=== PATIENT | female | born 1960 | race African-American/Black ===

== ENCOUNTER 2017-07-09 16:46 | Inpatient (IN) | payer OTHER ==
[2017-07-09 17:11] VITALS: BMI 22.7
[2017-07-09] MEDS ORDERED: diazePAM CARPU-JECT 10 MG/2 ML DISP.SYRIN IVPUSH ONE (17:42)
[2017-07-09] MEDS ORDERED: FOLIC ACID INJECTION - 1 MG, THIAMINE HCL 100 MG, MULTIVIT INJECTION ADULT 10 ML in SOD... IVPB ONE (17:47)
[2017-07-09 17:59] LABS: BASOPHIL 0.5 % (0-2.0); EOSINOPHIL 0.1 % (0-4.5); MCH 32.1 pg (25.7-33.7); MCHC 33.3 g/dl (32.0-36.0); MEAN CELL VOLUME 96.6 fl (80-96); NEUTROPHILS 66.9 % (42.8-82.8); RDW 16.2 % (11.6-15.6); WHITE BLOOD COUNT 4.6 K/mm3 (4.0-10.0)
[2017-07-09 18:11] LABS: URINE MARIJUANA THC NEGATIVE ng/ml (CUTOFF=50)
[2017-07-09] MEDS ORDERED: LORazepam 2 MG/ML SDV VIAL ONE (18:12)
--- NOTE | 2017-07-09 18:13 | PDOC ---
History of Present Illness - General Chief Complaint: Chest Pain Stated Complaint: CHEST PAIN Time Seen by Provider: 07/09/17 17:16 - History of Present Illness Initial Comments: 07/09/17 20:02 57F with pmh og HTN and Chronic alcohol abuse treated at [facility] for detox was sent to the ED from there when she started shaking and showing signs of withdrawal. Pt has been daily drinker since October, drinking about 1 pint of vodka per day. Last drink was 2 days ago. Denies h/o withdrawal seizures. She initially went to [facility] today for detox after she began to have tremors but began to experience chest pain. [facility] staff then referred patient to the ED for evaluation. Patient denies SOB. States that she gets chest pain intermittently and has been seen by doctor in the past but does not recall being diagnosed with anything Complains of generalized muscle pain including chest and lower abdomen. 07/10/17 01:25 Past History - Past Medical History Allergies/Adverse Reactions: Allergies Allergy/AdvReac Type Severity Reaction Status Date / Time No Known Allergies Allergy Verified 07/09/17 15:56 Home Medications: Ambulatory Orders Amlodipine Besylate [Norvasc -] 0 mg PO DAILY 07/09/17 Levetiracetam [Keppra -] 0 mg PO BID 07/09/17 HTN: Yes Seizures: Yes - Suicide/Smoking/Psychosocial Hx Smoking History: Never smoked Have you smoked in the past 12 months: No Information on smoking cessation initiated: No Hx Alcohol Use: Yes Drug/Substance Use Hx: No Substance Use Type: Alcohol Review of Systems - Review of Systems Constitutional: Yes: Chills. No: Diaphoresis HEENTM: No: Symptoms Reported Respiratory: No: Symptoms reported Cardiac (ROS): No: Symptoms Reported ABD/GI: No: Symptoms Reported : No: Symptoms Reported Musculoskeletal: Yes: Muscle Pain (generalized) Integumentary: No: Symptoms Reported Neurological: Yes: Tremors All Other Systems: Reviewed and Negative *Physical Exam - Vital Signs Last Vital Signs Temp Pulse Resp BP Pulse Ox 99.4 F 104 H 17 147/100 96 07/09/17 16:54 07/09/17 16:54 07/09/17 22:32 07/09/17 22:32 07/09/17 22:32 - Physical Exam General Appearance: Yes: Disheveled, Moderate Distress, Thin HEENT: positive: Other ([place]) Neck: positive: Trachea midline. negative: Tender Respiratory/Chest: positive: Lungs Clear, Normal Breath Sounds Cardiovascular: positive: Regular Rhythm, Regular Rate, S1, S2 Gastrointestinal/Abdominal: positive: Normal Bowel Sounds Extremity: positive: Pedal Edema Integumentary: positive: Normal Color, Cold. negative: Cyanotic Neurologic: positive: Alert, Responsive, Depressed Affect, Other (tremors present, slightly confused speech , needed redirecting) ED Treatment Course - LABORATORY CBC & Chemistry Diagram: 07/09/17 17:44 07/09/17 17:44 - ADDITIONAL ORDERS Additional order review: Laboratory Results 07/09/17 07/09/17 07/09/17 22:20 17:48 17:48 Sodium Potassium Chloride Carbon Dioxide Anion Gap BUN Creatinine Creat Clearance w eGFR Random Glucose Calcium Total Bilirubin AST ALT Alkaline Phosphatase Creatine Kinase 309 H Creatine Kinase Index 0.4 CK-MB (CK-2) 1.261 Troponin I < 0.02 Total Protein Albumin Urine Color Straw Urine Appearance Clear Urine pH 8.0 Ur Specific [place] 1.015 Urine Protein 1+ H Urine Glucose (UA) Negative Urine Ketones Trace H Urine Blood Negative Urine Nitrite Negative Urine Bilirubin Negative Urine Urobilinogen Negative Ur Leukocyte Esterase Negative Urine RBC 1 Urine WBC 1 Ur Epithelial Cells Rare Opiates Screen Negative Methadone Screen Negative Barbiturate Screen Negative Phencyclidine Screen Negative Ur Amphetamines Screen Negative MDMA (Ecstasy) Screen Negative Benzodiazepines Screen Negative Cocaine Screen Negative U Marijuana (THC) Screen Negative 07/09/17 17:44 Sodium 134 L Potassium 3.2 L Chloride 94 L Carbon Dioxide 29 Anion Gap 11 BUN 3 L Creatinine 0.5 L Creat Clearance w eGFR > 60 Random Glucose 108 H Calcium 8.7 Total Bilirubin 0.7 AST 186 H ALT 1 L Alkaline Phosphatase 151 H Creatine Kinase 322 H Creatine Kinase Index 0.4 CK-MB (CK-2) 1.553 Troponin I < 0.02 Total Protein 8.1 Albumin 3.8 Urine Color Urine Appearance Urine pH Ur Specific [place] Urine Protein Urine Glucose (UA) Urine Ketones Urine Blood Urine Nitrite Urine Bilirubin Urine Urobilinogen Ur Leukocyte Esterase Urine RBC Urine WBC Ur Epithelial Cells Opiates Screen Methadone Screen Barbiturate Screen Phencyclidine Screen Ur Amphetamines Screen MDMA (Ecstasy) Screen Benzodiazepines Screen Cocaine Screen U Marijuana (THC) Screen 07/09/17 17:44 RBC 4.27 MCV 96.6 H MCHC 33.3 RDW 16.2 H MPV 8.0 Neutrophils % 66.9 Lymphocytes % 22.1 Monocytes % 10.4 H Eosinophils % 0.1 Basophils % 0.5 - Medications Given in the ED: ED Medications Discontinued Medications Generic Name Dose Route Start Last Admin Trade Name Krystian PRN Reason Stop Dose Admin Chlordiazepoxide HCl 50 mg 07/09/17 22:07 07/09/17 22:53 Librium - PO 07/09/17 22:08 50 mg ONCE ONE Administration Diazepam 10 mg 07/09/17 17:42 07/09/17 18:38 Valium Injection - IVPUSH 07/09/17 17:43 Not Given ONCE ONE Ibuprofen 600 mg 07/09/17 23:06 07/10/17 00:55 Motrin - PO 07/09/17 23:07 600 mg ONCE ONE Administration Lorazepam 2 mg 07/09/17 18:08 07/09/17 18:22 Ativan Injection - IVPUSH 07/09/17 18:09 2 mg ONCE ONE Administration Ondansetron HCl 4 mg 07/09/17 22:08 07/09/17 22:31 Zofran Injection IVPB 07/09/17 22:09 4 mg ONCE ONE Administration Medical Decision Making - Medical Decision Making 07/10/17 01:26 57 F with ETOH abuse presenting in acute ETOH withdrawal, also complaining of chest pain. Pt with normal EKG, no cardiac risk factors. - Labs, serial trops - CXR - Benzos PRN 07/09/17 23:10 Trop negative x 2. Pt reassessed, now with no signs of active ETOH withdrawal. Received single dose of IV ativan 2mg followed by PO librium. Now with no tremors or tongue fasciculations. Pt well appearing, denies any complaints now, no signs of withdrawal. Vitals normal. Clinically stable for transfer to [facility] rehab. 07/10/17 01:17 Called [facility]. Currently no female beds available. Will admit to ED obs until AM when [facility] beds become available. *DC/Admit/Observation/Transfer Diagnosis at time of Disposition: Chest pain, Alcohol withdrawal - Discharge Dispostion Condition at time of disposition: Improved Admit: Yes - Patient Instructions Printed Discharge Instructions: DI for Atypical Chest Pain Additional Instructions: Please go directly to [facility] rehab to complete your detox. If you experience worsening chest pain, shortness of breath, or any other concerning symptoms, return to the ER immediately. - Transfer to Acute Care Facility Transfer comment: 07/10/17 01:19 SHORT STAY
[2017-07-09 18:17] LABS: URINE APPEARANCE CLEAR; URINE BILIRUBIN NEGATIVE (NEGATIVE); URINE BLOOD NEGATIVE (NEGATIVE); URINE COLOR STRAW; URINE GLUCOSE (UA) NEGATIVE (NEGATIVE); URINE KETONE TRACE (NEGATIVE); URINE NITRITE NEGATIVE (NEGATIVE); URINE UROBILINOGEN NEGATIVE mg/dL (0.2-1.0)
--- NOTE | 2017-07-09 18:21 | PDOC ---
Attending Attestation - Resident Resident Name: James Norwood - ED Attending Attestation I have performed the following: I have examined & evaluated the patient, The case was reviewed & discussed with the resident, I agree w/resident's findings & plan, Exceptions are as noted - HPI HPI: 07/09/17 18:16 "Patient is a 57 year old female with a significant past medical history of HTN who presents to the ED with complaints of tremors, anxiety, and chest pain in the context of ETOH cessation. Pt has been daily drinker since October, drinking about 1 pint of vodka per day. Last drink was 2 days ago. Denies h/o withdrawal seizures. She initially went to [facility] today for detox after she began to have tremors but began to experience chest pain. [facility] staff then referred patient to the ED for evaluation. Patient denies SOB. States that she gets chest pain intermittently and has been seen by doctor in the past but does not recall being diagnosed with anything. The pain is not exertional, not pleuritic. Pt denies any other substances besides ETOH. No cocaine, no cigarettes. Denies FH of [place]. Denies F/C. Denies coughing. denies N/V/D. Deines abdominal pain. Denies any other symptoms. Allergies: Penicillins. Surgical history: None Social history: Current drinker. No smoking. No illicit drugs. PMD: None " - Physicial Exam PE: 07/09/17 19:05 "GENERAL: Awake, alert, and fully oriented, in no acute distress HEAD: No signs of trauma EYES: PERRLA, EOMI, sclera anicteric, conjunctiva clear ENT: Auricles normal inspection, hearing grossly normal, nares patent, oropharynx clear without exudates. Moist mucosa NECK: Normal ROM, supple, no lymphadenopathy, JVD, or masses LUNGS: Breath sounds equal, clear to auscultation bilaterally. No wheezes, and no crackles HEART: Regular rate and rhythm, normal S1 and S2, no murmurs, rubs or gallops ABDOMEN: Soft, nontender, normoactive bowel sounds. No guarding, no rebound. No masses EXTREMITIES: Normal range of motion, no edema. No clubbing or cyanosis. No cords, erythema, or tenderness NEUROLOGICAL: +tremors, + tongue fasciculations SKIN: Warm, Dry, normal turgor, no rashes or lesions noted. " - Medical Decision Making 07/09/17 19:07 57 F with ETOH abuse presenting in acute ETOH withdrawal, also complaining of chest pain. Pt with normal EKG, no cardiac risk factors. - Labs, serial trops - CXR - Benzos PRN 07/09/17 23:10 Trop negative x 2. Pt reassessed, now with no signs of active ETOH withdrawal. Received single dose of IV ativan 2mg followed by PO librium. Now with no tremors or tongue fasciculations. Pt well appearing, denies any complaints now, no signs of withdrawal. Vitals normal. Clinically stable for transfer to [facility] rehab. 07/10/17 01:17 Called [facility]. Currently no female beds available. Will admit to ED obs until AM when [facility] beds become available. Pt signed out to night team at 2AM - dispo pending availability of [facility] bed. Case discussed in detail with oncoming Emergency Physician including history, physical exam and ancillary studies. Oncoming Emergency Physician has assumed care for the patient and will complete the evaluation and treatment. Patient is aware of the plan. Discharge Disposition - Diagnosis Chest pain, Alcohol withdrawal - Discharge Dispostion Condition at time of disposition: Improved - Patient Instructions Printed Discharge Instructions: DI for Atypical Chest Pain Additional Instructions: Please go directly to [facility] rehab to complete your detox. If you experience worsening chest pain, shortness of breath, or any other concerning symptoms, return to the ER immediately. Heart Score/ECG Review - History History: Slightly suspicious - Electrocardiogram EKG: Normal - Age Age: 45-65 - Risk Factors Risk Factors Heart Score: Yes Hx Hypertension - Troponin Troponin: </= normal limit - ECG Impressions Comment:: 07/09/17 19:09 NSR, no DEBORAH/STDs, no TWIs, intevals wnl, axis wnl
[2017-07-09 18:24] LABS: ALBUMIN 3.8 g/dl (3.4-5.0); ANION GAP 11 (8-16); BILIRUBIN,TOTAL 0.7 mg/dL (0.2-1.0); CALCIUM 8.7 mg/dL (8.5-10.1); CO2 29 mmol/L (21-32); CREATININE 0.5 mg/dL (0.55-1.02); GLUCOSE,RANDOM 108 mg/dL (74-106); TOT PROT 8.1 g/dl (6.4-8.2)
[2017-07-09 18:27] LABS: URINE PROTEIN 1+ (NEGATIVE)
[2017-07-09 18:27] LABS: ALK PHOS 151 U/L (45-117); CPK 322 IU/L (26-192); TROPONIN I < 0.02 ng/ml (0.00-0.05)
[2017-07-09 18:28] LABS: SGOT/AST 186 U/L (15-37); SGPT/ALT 1 U/L (12-78)
[2017-07-09 18:28] LABS: URINE RBC 1 /hpf (0-3); URINE WBC 1 /hpf (3-5)
[2017-07-09 18:36] LABS: PLATELET COMMENT2 NO CLOTTING DETECTED; PLATELET COUNT 73 K/MM3 (134-434); PLATELET ESTIMATE MOD DECREASED (NORMAL)
[2017-07-09 18:39] LABS: PLATELET COMMENT3 FEW GIANT PLTS
[2017-07-09 20:04] LABS: URINE LEUK ESTERASE Negative (NEGATIVE)
[2017-07-09] MEDS ORDERED: chlordiazePOXIDE HCL 25 MG CAPSULE PO ONE (22:07)
[2017-07-09] MEDS ORDERED: ONDANSETRON 4 MG/2 ML VIAL IVPB ONE (22:08)
[2017-07-09] MEDS ORDERED: ONDANSETRON 4 MG/2 ML VIAL ONE (22:26)
[2017-07-09] MEDS ORDERED: chlordiazePOXIDE HCL 25 MG CAPSULE ONE (22:26)
[2017-07-09 23:04] LABS: CPK 309 IU/L (26-192); TROPONIN I < 0.02 ng/ml (0.00-0.05)
[2017-07-09] MEDS ORDERED: IBUPROFEN 600 MG TABLET (FP) PO ONE (23:06)
[2017-07-10] MEDS ORDERED: IBUPROFEN 600 MG TABLET (FP) PO ONE (00:05)
--- NOTE | 2017-07-10 09:08 | EKG ---
Test Reason : Blood Pressure : / mmHG Vent. Rate : 105 BPM Atrial Rate : 105 BPM P-R Int : 138 ms QRS Dur : 072 ms QT Int : 366 ms P-R-T Axes : 063 017 014 degrees QTc Int : 483 ms SINUS TACHYCARDIA POSSIBLE LEFT ATRIAL ENLARGEMENT SEPTAL INFARCT , AGE UNDETERMINED ABNORMAL ECG NO PREVIOUS ECGS AVAILABLE Confirmed by WALTER RASMUSSEN MD ([id number]) on 07/10/2017 9:08:31 AM Referred By: Confirmed By:WALTER RASMUSSEN MD
--- NOTE | 2017-07-10 12:43 | PDOC ---
*Physical Exam - Vital Signs Last Vital Signs Temp Pulse Resp BP Pulse Ox 98 F 90 16 134/97 96 07/10/17 07:39 07/10/17 07:39 07/10/17 07:39 07/10/17 07:39 07/09/17 22:32 ED Treatment Course - LABORATORY CBC & Chemistry Diagram: 07/09/17 17:44 07/09/17 17:44 - ADDITIONAL ORDERS Additional order review: 07/09/17 17:44 RBC 4.27 MCV 96.6 H MCHC 33.3 RDW 16.2 H MPV 8.0 Neutrophils % 66.9 Lymphocytes % 22.1 Monocytes % 10.4 H Eosinophils % 0.1 Basophils % 0.5 - Medications Given in the ED: ED Medications Discontinued Medications Generic Name Dose Route Start Last Admin Trade Name Yordyq PRN Reason Stop Dose Admin Chlordiazepoxide HCl 50 mg 07/09/17 22:07 07/09/17 22:53 Librium - PO 07/09/17 22:08 50 mg ONCE ONE Administration Diazepam 10 mg 07/09/17 17:42 07/09/17 18:38 Valium Injection - IVPUSH 07/09/17 17:43 Not Given ONCE ONE Folic Acid 1 mg/ Thiamine HCl 1,000 mls @ 125 mls/hr 07/09/17 17:47 07/09/17 18 :34 100 mg/ Multivitamins/Minerals IVPB 07/10/17 01:46 125 mls/hr 10 ml/ Sodium Chloride ONCE ONE Administration Ibuprofen 600 mg 07/09/17 23:06 07/10/17 00:55 Motrin - PO 07/09/17 23:07 600 mg ONCE ONE Administration Lorazepam 2 mg 07/09/17 18:08 07/09/17 18:22 Ativan Injection - IVPUSH 07/09/17 18:09 2 mg ONCE ONE Administration Ondansetron HCl 4 mg 07/09/17 22:08 07/09/17 22:31 Zofran Injection IVPB 07/09/17 22:09 4 mg ONCE ONE Administration Medical Decision Making - Medical Decision Making 07/10/17 12:38 Patient signed out to me by overnight attending Dr. Dodson as admitted. On review of the chart, the patient did not have an admission order in place but was rather "a short stay" observation while she awaited a bed back in [facility]. Multiple attempts were made to secure a female bed in [facility] this morning by me. I was sent to [facility] multiple times. I was given the extension [phone] to call and no one has picked up or called me back at this number. At this time, I got case management rn Tereza involved. She was able to get in touch with intake at [facility] who stated we can send her over. Security will send patient over to [facility] at this time. 07/10/17 14:19 On evaluation by the case management rn, pt reporting persistent CP, worse with movement and also present at rest. Repeat EKG ordered, pt admitted to [facility] for further eval/management Case discussed in detail with admitting physician including history, physical exam and ancillary studies. Admitting physician has assumed care for the patient, will follow all pending diagnostics and will complete the evaluation and treatment. *DC/Admit/Observation/Transfer Diagnosis at time of Disposition: Chest pain, Alcohol withdrawal - Discharge Dispostion Condition at time of disposition: Stable Admit: Yes - Referrals - Patient Instructions Printed Discharge Instructions: DI for Atypical Chest Pain Additional Instructions: Please go directly to [facility] rehab to complete your detox. If you experience worsening chest pain, shortness of breath, or any other concerning symptoms, return to the ER immediately. - Post Discharge Activity - Attestations Physician Attestion: 07/10/17 14:23 I, Dr. Tj Matta MD, attest that this document has been prepared under my direction and personally reviewed by me in its entirety. I further attest, that it accurately reflects all work, treatment, procedures and medical decision -making performed by me.
--- NOTE | 2017-07-10 14:41 | HP ---
CHIEF COMPLAINT: PCP: HISTORY OF PRESENT ILLNESS: ER course was notable for: (1) (2) (3) Recent Travel: PAST MEDICAL HISTORY: PAST SURGICAL HISTORY: Social History: Smoking: Alcohol: Drugs: Family History: Allergies No Known Allergies Allergy (Verified 07/09/17 15:56) HOME MEDICATIONS: Home Medications Medication Instructions Recorded Amlodipine Besylate [Norvasc -] 0 mg PO DAILY 07/09/17 Levetiracetam [Keppra -] 0 mg PO BID 07/09/17 REVIEW OF SYSTEMS CONSTITUTIONAL: Absent: fever, chills, diaphoresis, generalized weakness, malaise, loss of appetite, weight change HEENT: Absent: rhinorrhea, nasal congestion, throat pain, throat swelling, difficulty swallowing, mouth swelling, ear pain, eye pain, visual changes CARDIOVASCULAR: Absent: chest pain, syncope, palpitations, irregular heart rate, lightheadedness , peripheral edema RESPIRATORY: Absent: cough, shortness of breath, dyspnea with exertion, orthopnea, wheezing, stridor, hemoptysis GASTROINTESTINAL: Absent: abdominal pain, abdominal distension, nausea, vomiting, diarrhea, constipation, melena, hematochezia GENITOURINARY: Absent: dysuria, frequency, urgency, hesitancy, hematuria, flank pain, genital pain MUSCULOSKELETAL: Absent: myalgia, arthralgia, joint swelling, back pain, neck pain SKIN: Absent: rash, itching, pallor HEMATOLOGIC/IMMUNOLOGIC: Absent: easy bleeding, easy bruising, lymphadenopathy, frequent infections ENDOCRINE: Absent: unexplained weight gain, unexplained weight loss, heat intolerance, cold intolerance NEUROLOGIC: Absent: headache, focal weakness or paresthesias, dizziness, unsteady gait, seizure, mental status changes, bladder or bowel incontinence PSYCHIATRIC: Absent: anxiety, depression, suicidal or homicidal ideation, hallucinations. PHYSICAL EXAMINATION Vital Signs - 24 hr 07/09/17 07/09/17 07/09/17 16:54 18:51 22:00 Temperature 99.4 F 98.4 F Pulse Rate 104 H Pulse Rate [ 98 H Apical] Respiratory 22 17 Rate Blood Pressure 150/109 Blood Pressure 141/98 [Right Arm] O2 Sat by Pulse 97 96 Oximetry (%) 07/09/17 07/10/17 07/10/17 22:32 07:39 12:58 Temperature 98 F 98.6 F Pulse Rate Pulse Rate [ 105 H 90 105 H Apical] Respiratory 17 16 20 Rate Blood Pressure Blood Pressure 147/100 134/97 123/94 [Right Arm] O2 Sat by Pulse 96 98 Oximetry (%) GENERAL: Awake, alert, and fully oriented, in no acute distress. HEAD: Normal with no signs of trauma. EYES: Pupils equal, round and reactive to light, extraocular movements intact, sclera anicteric, conjunctiva clear. No lid lag. EARS, NOSE, THROAT: Ears normal, nares patent, oropharynx clear without exudates. Moist mucous membranes. NECK: Normal range of motion, supple without lymphadenopathy, JVD, or masses. LUNGS: Breath sounds equal, clear to auscultation bilaterally. No wheezes, and no crackles. No accessory muscle use. HEART: Regular rate and rhythm, normal S1 and S2 without murmur, rub or gallop. ABDOMEN: Soft, nontender, not distended, normoactive bowel sounds, no guarding, no rebound, no masses. No hepatomegaly or splenomegaly. MUSCULOSKELETAL: Normal range of motion at all joints. No bony deformities or tenderness. No CVA tenderness. UPPER EXTREMITIES: 2+ pulses, warm, well-perfused. No cyanosis. No clubbing. No peripheral edema. LOWER EXTREMITIES: 2+ pulses, warm, well-perfused. No calf tenderness. No peripheral edema. NEUROLOGICAL: Cranial nerves II-XII intact. Normal speech. Normal gait. PSYCHIATRIC: Cooperative. Good eye contact. Appropriate mood and affect. SKIN: Warm, dry, normal turgor, no rashes or lesions noted, normal capillary refill. Laboratory Results - last 24 hr 07/09/17 07/09/17 07/09/17 17:44 17:44 17:48 WBC 4.6 RBC 4.27 Hgb 13.7 Hct 41.3 MCV 96.6 H MCH 32.1 MCHC 33.3 RDW 16.2 H Plt Count 73 L MPV 8.0 Neutrophils % 66.9 Lymphocytes % 22.1 Monocytes % 10.4 H Eosinophils % 0.1 Basophils % 0.5 Platelet Estimate Mod decreased Platelet Comment No clotting detected RBC Morphology Sodium 134 L Potassium 3.2 L Chloride 94 L Carbon Dioxide 29 Anion Gap 11 BUN 3 L Creatinine 0.5 L Creat Clearance w eGFR > 60 Random Glucose 108 H Calcium 8.7 Total Bilirubin 0.7 AST 186 H ALT 1 L Alkaline Phosphatase 151 H Creatine Kinase 322 H Creatine Kinase Index 0.4 CK-MB (CK-2) 1.553 Troponin I < 0.02 Total Protein 8.1 Albumin 3.8 Urine Color Straw Urine Appearance Clear Urine pH 8.0 Ur Specific [place] 1.015 Urine Protein 1+ H Urine Glucose (UA) Negative Urine Ketones Trace H Urine Blood Negative Urine Nitrite Negative Urine Bilirubin Negative Urine Urobilinogen Negative Ur Leukocyte Esterase Negative Urine RBC 1 Urine WBC 1 Ur Epithelial Cells Rare Opiates Screen Methadone Screen Barbiturate Screen Phencyclidine Screen Ur Amphetamines Screen MDMA (Ecstasy) Screen Benzodiazepines Screen Cocaine Screen U Marijuana (THC) Screen 07/09/17 07/09/17 17:48 22:20 WBC RBC Hgb Hct MCV MCH MCHC RDW Plt Count MPV Neutrophils % Lymphocytes % Monocytes % Eosinophils % Basophils % Platelet Estimate Platelet Comment RBC Morphology Sodium Potassium Chloride Carbon Dioxide Anion Gap BUN Creatinine Creat Clearance w eGFR Random Glucose Calcium Total Bilirubin AST ALT Alkaline Phosphatase Creatine Kinase 309 H Creatine Kinase Index 0.4 CK-MB (CK-2) 1.261 Troponin I < 0.02 Total Protein Albumin Urine Color Urine Appearance Urine pH Ur Specific [place] Urine Protein Urine Glucose (UA) Urine Ketones Urine Blood Urine Nitrite Urine Bilirubin Urine Urobilinogen Ur Leukocyte Esterase Urine RBC Urine WBC Ur Epithelial Cells Opiates Screen Negative Methadone Screen Negative Barbiturate Screen Negative Phencyclidine Screen Negative Ur Amphetamines Screen Negative MDMA (Ecstasy) Screen Negative Benzodiazepines Screen Negative Cocaine Screen Negative U Marijuana (THC) Screen Negative ASSESSMENT/PLAN:
--- NOTE | 2017-07-10 15:14 | HP ---
CHIEF COMPLAINT: chest pain PCP: None HISTORY OF PRESENT ILLNESS: This is a 57 year old female with a history of hypertension on norvasc and chronic alcohol use, daily drinker, one pint of vodka per day, sent over from [facility] due to chest pain. Last drink was 2 days ago. She admits to anterior, pressure like sensation, non radiating. Denies diaphoresis, GÓMEZ, blurry vision, n , v, paresthesia, abdominal pain, leg swelling. ER course was notable for: (1)ecg showing sinus tachycardial possible left atrial enlargement; septal infarct age undetermined; trop neg x2; elevated CK; Recent Travel: no PAST MEDICAL HISTORY: HTN PAST SURGICAL HISTORY: Social History: Smoking:no Alcohol:daily alcohol use; 1 pint vodka per day Drugs: none Family History: Allergies No Known Allergies Allergy (Verified 07/09/17 15:56) HOME MEDICATIONS: Home Medications Medication Instructions Recorded Amlodipine Besylate [Norvasc -] 0 mg PO DAILY 07/09/17 Levetiracetam [Keppra -] 0 mg PO BID 07/09/17 REVIEW OF SYSTEMS CONSTITUTIONAL: Positive: weakness Absent: fever, chills, diaphoresis, malaise, loss of appetite, weight change HEENT: Absent: rhinorrhea, nasal congestion, throat pain, throat swelling, difficulty swallowing, mouth swelling, ear pain, eye pain, visual changes CARDIOVASCULAR: positive: chest pain Absent: syncope, palpitations, irregular heart rate, lightheadedness, peripheral edema RESPIRATORY: Absent: cough, shortness of breath, dyspnea with exertion, orthopnea, wheezing, stridor, hemoptysis GASTROINTESTINAL: Absent: abdominal pain, abdominal distension, nausea, vomiting, diarrhea, constipation, melena, hematochezia GENITOURINARY: Absent: dysuria, frequency, urgency, hesitancy, hematuria, flank pain, genital pain MUSCULOSKELETAL: Absent: myalgia, arthralgia, joint swelling, back pain, neck pain SKIN: Absent: rash, itching, pallor HEMATOLOGIC/IMMUNOLOGIC: Absent: easy bleeding, easy bruising, lymphadenopathy, frequent infections ENDOCRINE: Absent: unexplained weight gain, unexplained weight loss, heat intolerance, cold intolerance NEUROLOGIC: Absent: headache, focal weakness or paresthesias, dizziness, unsteady gait, seizure, mental status changes, bladder or bowel incontinence PSYCHIATRIC: Absent: anxiety, depression, suicidal or homicidal ideation, hallucinations. PHYSICAL EXAMINATION GENERAL: Awake, alert, and fully oriented, in no acute distress. HEAD: Normal with no signs of trauma. EYES: Pupils equal, round and reactive to light, extraocular movements intact, sclera anicteric, conjunctiva clear. No lid lag. EARS, NOSE, THROAT: Ears normal, nares patent, oropharynx clear without exudates. Moist mucous membranes. NECK: Normal range of motion, supple without lymphadenopathy, JVD, or masses. LUNGS: Breath sounds equal, clear to auscultation bilaterally. No wheezes, and no crackles. No accessory muscle use. HEART: Regular rate and rhythm, normal S1 and S2 without murmur, rub or gallop. ABDOMEN: Soft, nontender, not distended, normoactive bowel sounds, no guarding, no rebound, no masses. No hepatomegaly or splenomegaly. MUSCULOSKELETAL: Normal range of motion at all joints. No bony deformities or tenderness. No CVA tenderness. UPPER EXTREMITIES: 2+ pulses, warm, well-perfused. No cyanosis. No clubbing. No peripheral edema. LOWER EXTREMITIES: 2+ pulses, warm, well-perfused. No calf tenderness. No peripheral edema. NEUROLOGICAL: Cranial nerves II-XII intact. Normal speech. Normal gait. PSYCHIATRIC: Cooperative. Good eye contact. Appropriate mood and affect. SKIN: Warm, dry, normal turgor, no rashes or lesions noted, normal capillary refill. CBC, BMP 07/09/17 17:44 07/09/17 17:44 ASSESSMENT/PLAN: This is a 57 year old female with a history of hypertension, daily drinker, who was sent over from [facility] due to chest pain. Rule out ACS. Detox. #Chest pain rule out ACS -admit to telemetry -troponins negx 2; third pending -asa -ecg showing old septal infarct; possible left atrial enlargement -consult cardiology discuss need for inpatient stress test; patient does not have primary #alcohol withdrawal: -was given vit b 12, thiamine, folate in ER -librium protocol -consult [facility] for detox #hypertension: -cont norvasc 10 mg daily #hypokalemia: -replace keegan #hx of seizure? -need to clarify; on keppra; cont if valid FEN: Fluids: po Electrolytes: hypok Diet; low Na VTE prophylaxis: due to low platelets; will do scds for now Disposition: admit tele; f/u cardio rec; detox Case discussed with attending Full H&P to follow Problem List - Problem (1) Alcohol dependence with uncomplicated withdrawal Code(s): F10.230 - ALCOHOL DEPENDENCE WITH WITHDRAWAL, UNCOMPLICATED (2) Chest pain Code(s): R07.9 - CHEST PAIN, UNSPECIFIED (3) Essential (primary) hypertension Code(s): I10 - ESSENTIAL (PRIMARY) HYPERTENSION (4) Seizures Code(s): R56.9 - UNSPECIFIED CONVULSIONS Visit type - Emergency Visit Emergency Visit: Yes ED Registration Date: 07/10/17 Care time: The patient presented to the Emergency Department on the above date and was hospitalized for further evaluation of their emergent condition. - New Patient This patient is new to me today: Yes Date on this admission: 07/10/17 - Critical Care Critical Care patient: No
[2017-07-10] MEDS ORDERED: chlordiazePOXIDE HCL 25 MG CAPSULE PO PRN (15:46)
--- NOTE | 2017-07-10 16:00 | CONSULT ---
Consult Detox [facility] Reason for Current Admission/Consult: alcohol detoxification Referred by:: tracy judge - History History of Present Illness: 57 yo f with h/o chronic alcoholism, CAD, seizures do, HTN not taking medications was sent from [facility] admissions unit to [facility] for evaluation of atypical chest pain, elevated enzymes noted in ED and patient admitted. started on libirum detox regimen as patient reports Alcohol withdrawal syndrome when she does not drink - sweats, tremros, nausea, loss of appetite, anxiety, insomnia. comfortable without sedation on current libirum detox protocol. Last seizure over 1 month ago - no related to alcohol use but because she was not taking her keppra. no psychiatric history, no suicidal ideation or suicide attempts in past, currently homeless. 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: Seizure (on keppra but not taking, last seizure over 1 month ago) Cardio/Vascular: Yes: CAD, HTN - Significant Medical Findings: labs reviewed, studies and ekg reviewed, medical record reviewed, low plts, no bleeding or bruising, macrocytosis , hypokalemia, hypertensive with tachycardia from possible withdrawal sx, atypical chest pain reported by patient CIWA Score - CIWA Score Nausea/Vomitin-Mild Nausea/No Vomiting Muscle Tremors: 1-None Visible, but [place] Anxiety: 1-Mildly Anxious Agitation: 1-Slight > Activity Paroxysmal Sweats: 1-Minimal Palms Moist Orientation: 0-Oriented Tacttile Disturbances: 1-Very Mild Itch/Numbness Auditory Disturbances: 0-None Visual Disturbances: 0-None Headache: 1-Very Mild CIWA-Ar Total Score: 7 Assessment Plan - Diagnosis (1) Chest pain Status: Acute (2) Alcohol dependence with uncomplicated withdrawal Status: Acute (3) Essential (primary) hypertension Status: Acute (4) Seizures Status: Chronic - Plan Plan: patient may return to [facility] for admission to inpatient rehab from alcohol when medically cleared after testing on Thursday, is interested in rehab facility in [place] however, continue detox as scheduled, hold asa as recommended by cardiology, started Keppra and antihypertensive medications, supplement k, vitamins and thiamine recommended. - Medication Detox Regimen/Protocol: Librium
[2017-07-10] MEDS ORDERED: ZOLPIDEM TARTRATE 5 MG TABLET PO PRN (16:02)
[2017-07-10] MEDS ORDERED: POTASSIUM CHLORIDE TABS 20 MEQ TABLET.ER (FP) PO ONE (16:07)
[2017-07-10] MEDS: chlordiazePOXIDE HCL 25 MG CAPSULE PO SCH ×2 (16:35→22:34)
[2017-07-10] MEDS: amLODIPine BESYLATE 5 MG TABLET (FP) PO SCH (16:35)
[2017-07-10 17:47] LABS: MCH 32.1 pg (25.7-33.7); MCHC 33.6 g/dl (32.0-36.0); MEAN CELL VOLUME 95.8 fl (80-96); MEAN PLT VOLUME 8.3 fl (7.5-11.1); PLATELET COUNT 71 K/MM3 (134-434); RDW 15.5 % (11.6-15.6); WHITE BLOOD COUNT 4.6 K/mm3 (4.0-10.0)
--- NOTE | 2017-07-10 18:18 | PN ---
Physical Exam: SUBJECTIVE: Patient seen and examined OBJECTIVE: Vital Signs Period Temp Pulse Resp BP Sys/[place]erson Pulse Ox Last 24 Hr 98 F 98 18 126/94 GENERAL: The patient is awake, alert, and fully oriented, in no acute distress. HEAD: Normal with no signs of trauma. EYES: PERRL, extraocular movements intact, sclera anicteric, conjunctiva clear. No ptosis. ENT: Ears normal, nares patent, oropharynx clear without exudates, moist mucous membranes. NECK: Trachea midline, full range of motion, supple. LUNGS: Breath sounds equal, clear to auscultation bilaterally, no wheezes, no crackles, no accessory muscle use. HEART: Regular rate and rhythm, S1, S2 without murmur, rub or gallop. ABDOMEN: Soft, nontender, nondistended, normoactive bowel sounds, no guarding, no rebound, no hepatosplenomegaly, no masses. EXTREMITIES: 2+ pulses, warm, well-perfused, no edema. NEUROLOGICAL: Cranial nerves II through XII grossly intact. Normal speech, gait not observed. PSYCH: Normal mood, normal affect. SKIN: Warm, dry, normal turgor, no rashes or lesions noted Active Medications Generic Name Dose Route Start Last Admin Trade Name Freq PRN Reason Stop Dose Admin Amlodipine Besylate 10 mg 07/10/17 16:15 07/10/17 16:35 Norvasc - PO 10 mg DAILY FRANCISCA Administration Chlordiazepoxide HCl 25 mg 07/10/17 15:46 Librium - PO 07/13/17 15:45 Q4H PRN WITHDRAWAL(CONT SUBST) Chlordiazepoxide HCl 50 mg 07/10/17 17:00 07/10/17 16:35 Librium - PO 07/11/17 11:01 50 mg [id number] FRANCISCA Administration Chlordiazepoxide HCl 25 mg 07/11/17 17:00 Librium - PO 07/12/17 11:01 [id number] FRANCISCA Chlordiazepoxide HCl 15 mg 07/12/17 17:00 Librium - PO 07/13/17 11:01 [id number] FRANCISCA Levetiracetam 500 mg 07/10/17 22:00 Keppra - PO BID FRANCISCA Zolpidem Tartrate 10 mg 07/10/17 16:02 Ambien - PO HS PRN INSOMNIA ASSESSMENT/PLAN:
[2017-07-10 18:19] LABS: ALBUMIN 3.5 g/dl (3.4-5.0); ANION GAP 9 (8-16); CALCIUM 8.1 mg/dL (8.5-10.1); CO2 32 mmol/L (21-32); GLUCOSE,RANDOM 152 mg/dL (74-106)
[2017-07-10 18:22] LABS: ALK PHOS 135 U/L (45-117); BILIRUBIN,TOTAL 0.9 mg/dL (0.2-1.0); CREATININE 0.5 mg/dL (0.55-1.02); SGOT/AST 106 U/L (15-37); SGPT/ALT 48 U/L (12-78); TOT PROT 7.4 g/dl (6.4-8.2)
--- NOTE | 2017-07-10 18:29 | HP ---
CHIEF COMPLAINT: Chest pain x 2 days PCP: Dr Packer (rtd) HISTORY OF PRESENT ILLNESS: The patient is a 57 F with PMHx of HTN, Seizures, Chronic alcohol abuse on detox, and osteoarthritis, presenting with a 2 day history of 9/10 constant retrosternal chest pain worsened by activity, relieved by rest. No associated cough or fevers. Non-pleuritic, not worsened by food. She describes intermittent SOB on exertion, walks with a walker (because her legs have been giving out on her), but no weakness of any side of her body, no recent seizures or loss of consciousness. Patient has a history of seizure disorders of which the last episode was one month ago, because she spreads out her medications (keppra) to last her adequately. She denied use of any illicit drugs or tobacco. She says she takes lite beers and vodka occasionally and her last drink was two days ago. She came into the ED yesterday from [facility] with a history of alcohol withdrawal and was to return to complete her detox at [facility] this am, when she started to c/o worsening chest pain. ER course was notable for: (1) EKG 07/09/17- showed QTc-483, Sinus tachy with L atrial enlargement and septal infarct, age undetermined (2) Platelets-73,000, Alk Phos -322 (3) K-3.2, 4) librium protocol, Keppra resumed 50 Seen by land reclamation specialist Recent Travel: None PAST MEDICAL HISTORY: HTN Seizures Chronic alcohol abuse on detox osteoarthritis PAST SURGICAL HISTORY: Social History: Smoking:Denies Alcohol: Current drinker, on detox Drugs: Denies Family History: Both parents in 80s of natural causes. Brother earlier (she didn't give details), Living sister is estranged Allergies No Known Allergies Allergy (Verified 07/09/17 15:56) HOME MEDICATIONS: Home Medications Medication Instructions Recorded Amlodipine Besylate [Norvasc -] 0 mg PO DAILY 07/09/17 Levetiracetam [Keppra -] 0 mg PO BID 07/09/17 REVIEW OF SYSTEMS CONSTITUTIONAL: Absent: fever, chills, diaphoresis, generalized weakness, malaise, loss of appetite, weight change HEENT: Absent: rhinorrhea, nasal congestion, throat pain, throat swelling, difficulty swallowing, mouth swelling, ear pain, eye pain, visual changes CARDIOVASCULAR: Absent: chest pain+, syncope, palpitations, irregular heart rate, lightheadedness, peripheral edema RESPIRATORY: Absent: cough, shortness of breath+, dyspnea with exertion, orthopnea, wheezing , stridor, hemoptysis GASTROINTESTINAL: Absent: abdominal pain, abdominal distension, nausea, vomiting, diarrhea, constipation, melena, hematochezia GENITOURINARY: Absent: dysuria, frequency, urgency, hesitancy, hematuria, flank pain, genital pain MUSCULOSKELETAL: Absent: myalgia, arthralgia, joint swelling, back pain, neck pain SKIN: Absent: rash, itching, pallor HEMATOLOGIC/IMMUNOLOGIC: Absent: easy bleeding, easy bruising, lymphadenopathy, frequent infections ENDOCRINE: Absent: unexplained weight gain, unexplained weight loss, heat intolerance, cold intolerance NEUROLOGIC: Absent: headache, focal weakness or paresthesias, dizziness, unsteady gait, seizure, mental status changes, bladder or bowel incontinence PSYCHIATRIC: Absent: anxiety, depression, suicidal or homicidal ideation, hallucinations. PHYSICAL EXAMINATION Vital Signs - 24 hr 07/10/17 07/10/17 16:14 17:26 Temperature 98 F Pulse Rate 98 H Respiratory 18 Rate Blood Pressure 126/94 O2 Sat by Pulse 98 Oximetry (%) GENERAL: Awake, alert, and fully oriented, in no acute distress. HEAD: Normal with no signs of trauma. EYES: Pupils equal, round and reactive to light, extraocular movements intact, sclera anicteric, conjunctiva clear. No lid lag. EARS, NOSE, THROAT: Ears normal, nares patent, oropharynx clear without exudates. Moist mucous membranes. NECK: Normal range of motion, supple without lymphadenopathy, JVD, or masses. LUNGS: Breath sounds equal, clear to auscultation bilaterally. No wheezes, and no crackles. No accessory muscle use. HEART: Tachycardic, S1 and S2, . ABDOMEN: Soft, nontender, not distended, normoactive bowel sounds, no guarding, no rebound, no masses. MUSCULOSKELETAL: Normal range of motion at all joints. No bony deformities or tenderness. No CVA tenderness. UPPER EXTREMITIES: 2+ pulses, warm, well-perfused. No cyanosis. No clubbing. No peripheral edema. LOWER EXTREMITIES: 2+ pulses, warm, well-perfused. No calf tenderness. No peripheral edema. Onychomychosis NEUROLOGICAL: No facial droop, normal sensation, mild tremors. Cranial nerves II-XII intact. Normal speech. Gait not observed. PSYCHIATRIC: Cooperative. Good eye contact. Appropriate mood and affect. Laboratory Results - last 24 hr 07/10/17 07/10/17 07/10/17 17:10 17:10 17:10 WBC 4.6 RBC 4.19 Hgb 13.5 Hct 40.2 MCV 95.8 MCH 32.1 MCHC 33.6 RDW 15.5 Plt Count 71 L MPV 8.3 Sodium 133 L Potassium 3.1 L Chloride 92 L Carbon Dioxide 32 Anion Gap 9 BUN 9 D Creatinine 0.5 L Creat Clearance w eGFR > 60 Random Glucose 152 H D Calcium 8.1 L Total Bilirubin 0.9 D AST 106 H D ALT 48 D Alkaline Phosphatase 135 H Troponin I < 0.02 Total Protein 7.4 Albumin 3.5 ASSESSMENT/PLAN: 57 F with PMHx of HTN, Seizures, Chronic alcohol abuse on detox, and osteoarthritis, presenting with a 2 day history of retrosternal chest pain and admitted for atypical chest pain #Chest pain: -Likely atypical, - negative trops, patient not SOB -EKG likely old septal infact -Telemetry -monitor #alcohol withdrawal: Minimal tremors On librium taper Seen by land reclamation specialist Continue Folic acid thiamine Ambien 10mg PO daily #Seizure disorder Continue Keppra 500 bid # HTN Norvasc 10mg #Prophylaxis thrombocytopenic-SCDs only Visit type - Emergency Visit Emergency Visit: Yes ED Registration Date: 07/10/17 Care time: The patient presented to the Emergency Department on the above date and was hospitalized for further evaluation of their emergent condition. - New Patient This patient is new to me today: Yes Date on this admission: 07/10/17 - Critical Care Critical Care patient: No
--- NOTE | 2017-07-10 21:08 | PN ---
Teaching Attending Note Name of Resident: Alexandria Morejon ATTENDING PHYSICIAN STATEMENT I saw and evaluated the patient. I reviewed the resident's note and discussed the case with the resident. I agree with the resident's findings and plan as documented. SUBJECTIVE: Patient is comfortable at this time, no further chest pain. N shortness of breath, no nausea or vomiting. OBJECTIVE: Vital Signs Temperature 98 F 07/10/17 16:14 Pulse Rate 98 H 07/10/17 16:14 Respiratory Rate 18 07/10/17 16:14 Blood Pressure 126/94 07/10/17 16:14 O2 Sat by Pulse Oximetry (%) 98 07/10/17 17:26 CBCD WBC 4.6 K/mm3 (4.0-10.0) 07/10/17 17:10 RBC 4.19 M/mm3 (3.60-5.2) 07/10/17 17:10 Hgb 13.5 GM/dL (10.7-15.3) 07/10/17 17:10 Hct 40.2 % (32.4-45.2) 07/10/17 17:10 MCV 95.8 fl (80-96) 07/10/17 17:10 MCHC 33.6 g/dl (32.0-36.0) 07/10/17 17:10 RDW 15.5 % (11.6-15.6) 07/10/17 17:10 Plt Count 71 K/MM3 (134-434) L 07/10/17 17:10 MPV 8.3 fl (7.5-11.1) 07/10/17 17:10 CMP Sodium 133 mmol/L (136-145) L 07/10/17 17:10 Potassium 3.1 mmol/L (3.5-5.1) L 07/10/17 17:10 Chloride 92 mmol/L (98-107) L 07/10/17 17:10 Carbon Dioxide 32 mmol/L (21-32) 07/10/17 17:10 Anion Gap 9 (8-16) 07/10/17 17:10 BUN 9 mg/dL (7-18) D 07/10/17 17:10 Creatinine 0.5 mg/dL (0.55-1.02) L 07/10/17 17:10 Creat Clearance w eGFR > 60 (>60) 07/10/17 17:10 Random Glucose 152 mg/dL (74-106) H D 07/10/17 17:10 Calcium 8.1 mg/dL (8.5-10.1) L 07/10/17 17:10 Total Bilirubin 0.9 mg/dL (0.2-1.0) D 07/10/17 17:10 AST 106 U/L (15-37) H D 07/10/17 17:10 ALT 48 U/L (12-78) D 07/10/17 17:10 Alkaline Phosphatase 135 U/L (45-117) H 07/10/17 17:10 Total Protein 7.4 g/dl (6.4-8.2) 07/10/17 17:10 Albumin 3.5 g/dl (3.4-5.0) 07/10/17 17:10 CARDIAC ENZYMES Creatine Kinase 309 IU/L (26-192) H 07/09/17 22:20 Troponin I < 0.02 ng/ml (0.00-0.05) 07/10/17 17:10 Current Medications Generic Name Dose Route Start Last Admin Trade Name Freq PRN Reason Stop Dose Admin Amlodipine Besylate 10 mg 07/10/17 16:15 07/10/17 16:35 Norvasc - PO 10 mg DAILY FRANCISCA Administration Chlordiazepoxide HCl 25 mg 07/10/17 15:46 Librium - PO 07/13/17 15:45 Q4H PRN WITHDRAWAL(CONT SUBST) Chlordiazepoxide HCl 50 mg 07/10/17 17:00 07/10/17 16:35 Librium - PO 07/11/17 11:01 50 mg [id number] FRANCISCA Administration Chlordiazepoxide HCl 25 mg 07/11/17 17:00 Librium - PO 07/12/17 11:01 [id number] FRANCISCA Chlordiazepoxide HCl 15 mg 07/12/17 17:00 Librium - PO 07/13/17 11:01 [id number] FRANCISCA Levetiracetam 500 mg 07/10/17 22:00 Keppra - PO BID FRANCISCA Zolpidem Tartrate 10 mg 07/10/17 16:02 Ambien - PO HS PRN INSOMNIA Home Medications Medication Instructions Recorded Amlodipine Besylate [Norvasc -] 0 mg PO DAILY 07/09/17 Levetiracetam [Keppra -] 0 mg PO BID 07/09/17 PE: per resident's note Poor hygiene ASSESSMENT AND PLAN: This is a 57 year old female with PMHx of HTN, chronic alcohol dependency on a daily basis; one pint of vodka per day, [place] [facility] [place]. #Acute Chest pain r/o Acs , CE q6hx3, 2 sets are negative so far,3rd one is pending. EKG in am Cardio consult , tele monitoring , cardio consult #alcohol withdrawal: continue Librium protocol , folic acid, thiamine daily #Seizure disorder continue Keppra 500 bid # HTN on Norvasc 10mg # Thrombocytopenia alcohol induced will monitor # Hypokalemia will replet, will also check phos, mg ordered. DVT Px: SCDs only since has thrombocytopenia due to alcohol
[2017-07-10] MEDS: levETIRAcetam 500 MG TABLET (FP) PO SCH (21:50)
[2017-07-10] MEDS: FOLIC ACID 1 MG TABLET (FP) PO SCH (21:50)
[2017-07-10] MEDS: THIAMINE HCL 100 MG TABLET (FP) PO SCH (21:51)
[2017-07-11] MEDS: chlordiazePOXIDE HCL 25 MG CAPSULE PO SCH ×4 (05:37→22:53)
[2017-07-11 07:36] LABS: BASOPHIL 0.6 % (0-2.0); EOSINOPHIL 0.4 % (0-4.5); MCHC 32.5 g/dl (32.0-36.0); MEAN CELL VOLUME 98.5 fl (80-96); MEAN PLT VOLUME 8.6 fl (7.5-11.1); NEUTROPHILS 58.1 % (42.8-82.8); PLATELET COUNT 76 K/MM3 (134-434); RDW 15.8 % (11.6-15.6); WHITE BLOOD COUNT 3.9 K/mm3 (4.0-10.0)
[2017-07-11 08:19] LABS: ALBUMIN 3.3 g/dl (3.4-5.0); ANION GAP 9 (8-16); CALCIUM 8.4 mg/dL (8.5-10.1); CO2 32 mmol/L (21-32)
[2017-07-11 08:22] LABS: ALK PHOS 119 U/L (45-117); CREATININE 0.7 mg/dL (0.55-1.02); GLUCOSE,RANDOM 90 mg/dL (74-106); PHOSPHOROUS 4.1 mg/dL (2.5-4.9); SGPT/ALT 44 U/L (12-78); TOT PROT 7.3 g/dl (6.4-8.2)
[2017-07-11 08:26] LABS: MAGNESIUM 1.5 mg/dL (1.8-2.4); SGOT/AST 94 U/L (15-37)
--- NOTE | 2017-07-11 08:59 | CON.CARD ---
Cardiology Consult (text) - Consultation Consultation Note: Cardiology Consult Dictated ETOH abuse Atypical chest pain H/O HTN REC: Enzymes negative, ECG without acute changes. Platelets low, likely secondary to ETOH marrow suppression, hold ASA Plan for Echo and Persantine MIBI Thursday.
[2017-07-11] MEDS: THIAMINE HCL 100 MG TABLET (FP) PO SCH (09:15)
[2017-07-11] MEDS: FOLIC ACID 1 MG TABLET (FP) PO SCH (09:15)
[2017-07-11] MEDS: amLODIPine BESYLATE 5 MG TABLET (FP) PO SCH (09:15)
[2017-07-11] MEDS: levETIRAcetam 500 MG TABLET (FP) PO SCH ×2 (09:15→22:53)
[2017-07-11] MEDS ORDERED: POTASSIUM CHLORIDE TABS 20 MEQ TABLET.ER (FP) PO SCH (10:00)
[2017-07-11] MEDS ORDERED: THIAMINE HCL 100 MG TABLET (FP) PO SCH (10:00)
--- NOTE | 2017-07-11 11:05 | EKG ---
Test Reason : Blood Pressure : / mmHG Vent. Rate : 095 BPM Atrial Rate : 095 BPM P-R Int : 134 ms QRS Dur : 078 ms QT Int : 402 ms P-R-T Axes : 069 035 025 degrees QTc Int : 505 ms NORMAL SINUS RHYTHM PROLONGED QT ABNORMAL ECG WHEN COMPARED WITH ECG OF 10-JUL-2017 14:30, NO SIGNIFICANT CHANGE WAS FOUND Confirmed by WALTER RASMUSSEN MD ([id number]) on 07/11/2017 11:05:02 AM Referred By: Ivis ELLISON Confirmed By:WALTER RASMUSSEN MD
[2017-07-11] MEDS ORDERED: ASPIRIN COATED 81 MG TABLET.EC PO SCH (11:45)
--- NOTE | 2017-07-11 11:57 | CONS ---
DATE OF CONSULTATION: 07/11/2017 REASON FOR CONSULTATION: Consultation is requested by Dr. Kruger for chest pain. HISTORY OF PRESENT ILLNESS: This is a 57-year-old female with a past medical history of hypertension, alcoholism at [facility] alcohol rehab who was transferred to [facility] for evaluation of chest pain. The patient describes a centrally located substernal chest pressure which lasted for "2 hours," nonradiating, no associated with nausea, vomiting, or diaphoresis. She also describes chronic dyspnea on exertion, nonradiating, no associated nausea, vomiting, or diaphoresis. She also describes chronic dyspnea on exertion. She has no prior cardiac history. She has not had a stress test in the last 3 years. She denies history of myocardial infarction. No palpitation, PND, orthopnea, syncope or any other symptoms of heart failure. PAST MEDICAL HISTORY: As above. ALLERGIES: None. CURRENT MEDICATIONS: Include Norvasc 10 mg daily, Librium taper, Keppra 50 mg b.i.d., K-Dur, vitamin D and Ambien. FAMILY HISTORY: Mother and father both passed of cancer as did her brother. SOCIAL HISTORY: Alcoholic. Denies cocaine, heroin or other illicit drugs. Currently unemployed and homeless. PHYSICAL EXAMINATION: VITAL SIGNS: Afebrile, 98.4, pulse 97, blood pressure 124/74. Saturation 98 on room air. EKG sinus tachycardia at 105 beats per minute. Telemetry showed sinus tachycardia . NECK: No bruits. HEART: S1, S2 regular, no murmurs. CHEST: Clear. ABDOMEN: Soft, nontender. EXTREMITIES: No edema. LABS: White count 3.9, hematocrit 43, platelets 76. Sodium 137, potassium 3.5, creatinine 0.7, magnesium 1.5. LFTs with AST of 94, ALT of 44. CK and troponin 322/309, troponin negative x3 sets with a negative MB and negative index. Chest x-ray was reviewed and showed no acute pathology. ASSESSMENT: A 57-year-old female with hypertension and history of alcoholism with atypical chest pain. PLAN: 1. Hold aspirin due to thrombocytopenia likely due to marrow suppression. 2. Echocardiogram on Thursday to rule out pericardial disease and/or pulmonary hypertension, assess aortic root. 3. Plan for Persantine nuclear stress test on Thursday morning. The patient states she cannot walk due to chronic neuropathy and chronic dyspnea. Further recommendations pending above diagnostic workup. Thank you for the consultation. Please continue telemetry until above diagnostic studies are completed. WALTER RASMUSSEN M.D. [id number]
--- NOTE | 2017-07-11 12:48 | EKG ---
Test Reason : Blood Pressure : / mmHG Vent. Rate : 101 BPM Atrial Rate : 101 BPM P-R Int : 134 ms QRS Dur : 070 ms QT Int : 434 ms P-R-T Axes : 056 027 024 degrees QTc Int : 562 ms SINUS TACHYCARDIA SEPTAL INFARCT (CITED ON OR BEFORE 09-JUL-2017) PROLONGED QT ABNORMAL ECG WHEN COMPARED WITH ECG OF 09-JUL-2017 17:15, QT HAS LENGTHENED Confirmed by WALTER RASMUSSEN MD ([id number]) on 07/11/2017 12:48:00 PM Referred By: Confirmed By:WALTER RASMUSSEN MD
--- NOTE | 2017-07-11 13:27 | PN ---
Problem List - Problems (1) Alcohol withdrawal Assessment/Plan: [facility] she is doing well her concern is more that hse has no place to go to Code(s): F10.239 - ALCOHOL DEPENDENCE WITH WITHDRAWAL, UNSPECIFIED (2) Chest pain Assessment/Plan: atypical chest pain patient will have a stress test done on thursday as per cardiology recommendation Code(s): R07.9 - CHEST PAIN, UNSPECIFIED (3) Essential (primary) hypertension Assessment/Plan: start the patient on HCTZ 25mg daily Code(s): I10 - ESSENTIAL (PRIMARY) HYPERTENSION (4) Seizures Code(s): R56.9 - UNSPECIFIED CONVULSIONS (5) Homeless single person Assessment/Plan: will address the issue with the patient social media content manager Code(s): Z59.0 - HOMELESSNESS (6) Hypokalemia Assessment/Plan: PO supplementation of potassium Code(s): E87.6 - HYPOKALEMIA Visit type - Emergency Visit Emergency Visit: No - New Patient This patient is new to me today: Yes Date on this admission: 07/11/17 - Critical Care Critical Care patient: No
[2017-07-11] MEDS ORDERED: PT OWN MED DRAWER 7, Y5N ONE (15:33)
[2017-07-11] MEDS: MAGNESIUM OXIDE 400 MG TABLET (FP) PO SCH ×2 (15:54→22:53)
[2017-07-11] MEDS ORDERED: POTASSIUM CHLORIDE ORAL LIQUID 20 MEQ/15 ML PO ONE (16:10)
[2017-07-11] MEDS: PRENATAL VITAMINS W/ FOLIC ACID TABLET (FP) PO SCH (19:27)
[2017-07-11] MEDS ORDERED: POTASSIUM CHLORIDE ORAL LIQUID 20 MEQ/15 ML PO SCH (22:00)
[2017-07-12] MEDS: POTASSIUM CHLORIDE ORAL LIQUID 20 MEQ/15 ML PO SCH ×3 (00:05→21:38)
[2017-07-12] MEDS: chlordiazePOXIDE HCL 25 MG CAPSULE PO SCH ×2 (05:05→11:15)
--- NOTE | 2017-07-12 09:01 | PN ---
Progress Note, Physician Chief Complaint: Cardiology for [place] History of Present Illness: No complaints - Current Medication List Current Medications: Active Medications Amlodipine Besylate (Norvasc -) 10 mg PO DAILY [facility] Last Admin: 07/11/17 09:15 Dose: 10 mg Chlordiazepoxide HCl (Librium -) 25 mg PO Q4H PRN PRN Reason: WITHDRAWAL(CONT SUBST) Stop: 07/13/17 15:45 Chlordiazepoxide HCl (Librium -) 25 mg PO [id number] [facility] Stop: 07/12/17 11:01 Last Admin: 07/12/17 05:05 Dose: Not Given Chlordiazepoxide HCl (Librium -) 15 mg PO [id number] [facility] Stop: 07/13/17 11:01 Folic Acid (Folic Acid -) 1 mg PO DAILY [facility] Last Admin: 07/11/17 09:15 Dose: 1 mg Levetiracetam (Keppra -) 500 mg PO BID [facility] Last Admin: 07/11/17 22:53 Dose: 500 mg Lorazepam (Ativan Injection -) 1 mg IVPUSH Q6H PRN PRN Reason: WITHDRAWAL(CONT SUBST) Magnesium Oxide (Mag-Ox -) 400 mg PO BID [facility] Last Admin: 07/11/17 22:53 Dose: 400 mg Potassium Chloride (Potassium Chloride Oral Liquid) 20 meq PO BID [facility] Last Admin: 07/12/17 00:05 Dose: 20 meq Multivit/Folic Acid/Iron ( Vitamins (Sjr) -) 1 tab PO DAILY [facility] Last Admin: 07/11/17 19:27 Dose: Not Given Thiamine HCl (Vitamin B1 -) 100 mg PO DAILY [facility] Last Admin: 07/11/17 09:15 Dose: 100 mg Zolpidem Tartrate (Ambien -) 10 mg PO HS PRN PRN Reason: INSOMNIA Last Admin: 07/10/17 23:56 Dose: 10 mg - Objective Vital Signs: Vital Signs Temperature 98.1 F 07/12/17 08:27 Pulse Rate 100 H 07/12/17 08:27 Respiratory Rate 20 07/12/17 08:27 Blood Pressure 94/53 07/12/17 08:27 O2 Sat by Pulse Oximetry (%) 97 07/11/17 21:00 Constitutional: Yes: Calm Cardiovascular: Yes: Regular Rate and Rhythm Respiratory: Yes: CTA Bilaterally Gastrointestinal: Yes: Soft Edema: No Neurological: Yes: Alert, Oriented Labs: CBC, BMP 07/11/17 05:18 07/11/17 05:18 Laboratory Tests 07/11/17 07/11/17 05:18 05:18 WBC 3.9 L Hgb 14.0 Plt Count 76 L Sodium 137 Potassium 3.5 Creatinine 0.7 D - ....Imaging EKG: Image Reviewed (NSR and periods of sinus tach 120s) Assessment/Plan ETOH abuse Atypical chest pain H/O HTN REC: Enzymes negative, ECG without acute changes. Platelets low, likely secondary to ETOH marrow suppression, hold ASA Plan for Echo and Persantine MIBI Thursday. Treatment of ETOH withdrawal sx; periods of sinus tach likely on that basis.
[2017-07-12 09:17] LABS: BASOPHIL 0.6 % (0-2.0); EOSINOPHIL 0.6 % (0-4.5); MCH 31.9 pg (25.7-33.7); MCHC 32.3 g/dl (32.0-36.0); MEAN CELL VOLUME 98.7 fl (80-96); MEAN PLT VOLUME 9.1 fl (7.5-11.1); NEUTROPHILS 60.1 % (42.8-82.8); PLATELET COUNT 77 K/MM3 (134-434); RDW 15.4 % (11.6-15.6); WHITE BLOOD COUNT 3.7 K/mm3 (4.0-10.0)
[2017-07-12] MEDS: FOLIC ACID 1 MG TABLET (FP) PO SCH (09:24)
[2017-07-12] MEDS: THIAMINE HCL 100 MG TABLET (FP) PO SCH (09:24)
[2017-07-12] MEDS: levETIRAcetam 500 MG TABLET (FP) PO SCH ×2 (09:24→21:37)
[2017-07-12] MEDS: PRENATAL VITAMINS W/ FOLIC ACID TABLET (FP) PO SCH (09:24)
[2017-07-12] MEDS: MAGNESIUM OXIDE 400 MG TABLET (FP) PO SCH ×2 (09:24→21:37)
[2017-07-12] MEDS: IBUPROFEN 600 MG TABLET (FP) PO PRN (09:29)
[2017-07-12] MEDS: amLODIPine BESYLATE 5 MG TABLET (FP) PO SCH (09:29)
[2017-07-12 09:56] LABS: ALBUMIN 3.5 g/dl (3.4-5.0); ANION GAP 8 (8-16); CALCIUM 8.2 mg/dL (8.5-10.1); CO2 31 mmol/L (21-32); GLUCOSE,RANDOM 112 mg/dL (74-106)
[2017-07-12 09:59] LABS: ALK PHOS 101 U/L (45-117); BILIRUBIN,TOTAL 0.7 mg/dL (0.2-1.0); CREATININE 0.6 mg/dL (0.55-1.02); SGOT/AST 70 U/L (15-37); SGPT/ALT 41 U/L (12-78); TOT PROT 7.1 g/dl (6.4-8.2)
--- NOTE | 2017-07-12 11:20 | PN ---
Progress Note, Physician - Current Medication List Current Medications: Active Medications Amlodipine Besylate (Norvasc -) 10 mg PO DAILY [facility] Last Admin: 07/12/17 09:29 Dose: 10 mg Chlordiazepoxide HCl (Librium -) 25 mg PO Q4H PRN PRN Reason: WITHDRAWAL(CONT SUBST) Stop: 07/13/17 15:45 Chlordiazepoxide HCl (Librium -) 15 mg PO [id number] [facility] Stop: 07/13/17 11:01 Folic Acid (Folic Acid -) 1 mg PO DAILY [facility] Last Admin: 07/12/17 09:24 Dose: 1 mg Ibuprofen (Motrin -) 600 mg PO Q6H PRN PRN Reason: FEVER Last Admin: 07/12/17 09:29 Dose: 600 mg Levetiracetam (Keppra -) 500 mg PO BID [facility] Last Admin: 07/12/17 09:24 Dose: 500 mg Lorazepam (Ativan Injection -) 1 mg IVPUSH Q6H PRN PRN Reason: WITHDRAWAL(CONT SUBST) Magnesium Oxide (Mag-Ox -) 400 mg PO BID [facility] Last Admin: 07/12/17 09:24 Dose: 400 mg Potassium Chloride (Potassium Chloride Oral Liquid) 20 meq PO BID [facility] Last Admin: 07/12/17 09:24 Dose: 20 meq Multivit/Folic Acid/Iron ( Vitamins (Sjr) -) 1 tab PO DAILY [facility] Last Admin: 07/12/17 09:24 Dose: 1 tab Thiamine HCl (Vitamin B1 -) 100 mg PO DAILY [facility] Last Admin: 07/12/17 09:24 Dose: 100 mg Zolpidem Tartrate (Ambien -) 10 mg PO HS PRN PRN Reason: INSOMNIA Last Admin: 07/10/17 23:56 Dose: 10 mg - Objective Vital Signs: Vital Signs Temperature 98.1 F 07/12/17 08:27 Pulse Rate 100 H 07/12/17 08:27 Respiratory Rate 20 07/12/17 08:27 Blood Pressure 94/53 07/12/17 08:27 O2 Sat by Pulse Oximetry (%) 98 07/12/17 08:00 Constitutional: Yes: Well Nourished, No Distress, Calm Eyes: Yes: WNL, Conjunctiva Clear, EOM Intact HENT: Yes: WNL, Atraumatic, Normocephalic Neck: Yes: WNL, Supple, Trachea Midline Cardiovascular: Yes: WNL, Regular Rate and Rhythm Respiratory: Yes: WNL, Regular, CTA Bilaterally Gastrointestinal: Yes: WNL, Normal Bowel Sounds, Soft Peripheral Pulses WNL: Yes Peripheral Pulses: Left Radial: 2+, Right Radial: 2+ Integumentary: Yes: WNL Neurological: Yes: WNL, Alert, Oriented Labs: CBC, BMP 07/12/17 08:30 07/12/17 08:30 Problem List - Problems (1) Alcohol withdrawal Assessment/Plan: patient is on alcohol withdrawl protocol she is clam without any anxiety no shaking day 3 of librium protocol no IVP of lorazepam was given Code(s): F10.239 - ALCOHOL DEPENDENCE WITH WITHDRAWAL, UNSPECIFIED (2) Chest pain Assessment/Plan: atypical in nature nuclear stress test and echo c/w aspirin Code(s): R07.9 - CHEST PAIN, UNSPECIFIED (3) Essential (primary) hypertension Assessment/Plan: stable will c/w medical treatment amlodipine 10mg daily Code(s): I10 - ESSENTIAL (PRIMARY) HYPERTENSION (4) Seizures Code(s): R56.9 - UNSPECIFIED CONVULSIONS (5) Homeless single person Code(s): Z59.0 - HOMELESSNESS (6) Hypokalemia Assessment/Plan: resolved with supplementation Code(s): E87.6 - HYPOKALEMIA (7) Tingling Assessment/Plan: tinglining on the right 5th digit will order vitamin b12 levels supplement b12 Code(s): R20.2 - PARESTHESIA OF SKIN
[2017-07-12] MEDS: chlordiazePOXIDE 5 MG CAPSULE PO SCH ×2 (16:45→22:52)
[2017-07-13] MEDS: chlordiazePOXIDE 5 MG CAPSULE PO SCH ×2 (05:46→11:29)
[2017-07-13 08:00] LABS: BASOPHIL 0.7 % (0-2.0); EOSINOPHIL 0.8 % (0-4.5); MCH 32.1 pg (25.7-33.7); MCHC 32.4 g/dl (32.0-36.0); MEAN PLT VOLUME 9.5 fl (7.5-11.1); NEUTROPHILS 47.4 % (42.8-82.8); PLATELET COUNT 80 K/MM3 (134-434); RDW 15.2 % (11.6-15.6); WHITE BLOOD COUNT 3.7 K/mm3 (4.0-10.0)
[2017-07-13 08:47] LABS: ALBUMIN 3.1 g/dl (3.4-5.0); ANION GAP 7 (8-16); BILIRUBIN,DIRECT 0.1 mg/dL (0.0-0.2); CALCIUM 8.4 mg/dL (8.5-10.1); CO2 29 mmol/L (21-32); CREATININE 0.6 mg/dL (0.55-1.02); GLUCOSE,RANDOM 80 mg/dL (74-106); MAGNESIUM 1.6 mg/dL (1.8-2.4); SGOT/AST 48 U/L (15-37); SGPT/ALT 35 U/L (12-78)
[2017-07-13 08:48] LABS: ALK PHOS 83 U/L (45-117); BILIRUBIN,TOTAL 0.4 mg/dL (0.2-1.0); TOT PROT 6.5 g/dl (6.4-8.2)
[2017-07-13] MEDS ORDERED: WATER IVPB ONE (10:30)
[2017-07-13] MEDS ORDERED: DIPYRIDAMOLE STRESS TEST IVPB ONE (10:30)
[2017-07-13] MEDS ORDERED: DEXTROSE 5% IVPB ONE (10:30)
--- NOTE | 2017-07-13 12:23 | PN ---
Progress Note, Physician History of Present Illness: 57F with pmh og HTN and Chronic alcohol abuse treated at [facility] for detox was sent to the ED from there when she started shaking and showing signs of withdrawal. Pt has been daily drinker since October, drinking about 1 pint of vodka per day. Last drink was 2 days ago. Denies h/o withdrawal seizures. She initially went to [facility] today for detox after she began to have tremors but began to experience chest pain. [facility] staff then referred patient to the ED for evaluation. Patient denies SOB. States that she gets chest pain intermittently and has been seen by doctor in the past but does not recall being diagnosed with anything Complains of generalized muscle pain including chest and lower abdomen. - Current Medication List Current Medications: Active Medications Amlodipine Besylate (Norvasc -) 10 mg PO DAILY [facility] Last Admin: 07/12/17 09:29 Dose: 10 mg Chlordiazepoxide HCl (Librium -) 25 mg PO Q4H PRN PRN Reason: WITHDRAWAL(CONT SUBST) Stop: 07/13/17 15:45 Cyanocobalamin (Vitamin B12 -) 1,000 mcg PO DAILY [facility] Folic Acid (Folic Acid -) 1 mg PO DAILY [facility] Last Admin: 07/12/17 09:24 Dose: 1 mg Ibuprofen (Motrin -) 600 mg PO Q6H PRN PRN Reason: FEVER Last Admin: 07/12/17 09:29 Dose: 600 mg Levetiracetam (Keppra -) 500 mg PO BID [facility] Last Admin: 07/12/17 21:37 Dose: 500 mg Lorazepam (Ativan Injection -) 1 mg IVPUSH Q6H PRN PRN Reason: WITHDRAWAL(CONT SUBST) Magnesium Oxide (Mag-Ox -) 400 mg PO BID [facility] Last Admin: 07/12/17 21:37 Dose: 400 mg Potassium Chloride (Potassium Chloride Oral Liquid) 20 meq PO BID [facility] Last Admin: 07/12/17 21:38 Dose: 20 meq Multivit/Folic Acid/Iron ( Vitamins (Sjr) -) 1 tab PO DAILY [facility] Last Admin: 07/12/17 09:24 Dose: 1 tab Thiamine HCl (Vitamin B1 -) 100 mg PO DAILY [facility] Last Admin: 07/12/17 09:24 Dose: 100 mg Zolpidem Tartrate (Ambien -) 10 mg PO HS PRN PRN Reason: INSOMNIA Last Admin: 07/10/17 23:56 Dose: 10 mg - Objective Vital Signs: Vital Signs Temperature 98 F 07/13/17 10:00 Pulse Rate 80 07/13/17 10:00 Respiratory Rate 18 07/13/17 10:00 Blood Pressure 104/60 07/13/17 10:00 O2 Sat by Pulse Oximetry (%) 98 07/13/17 09:00 Eyes: Yes: WNL, Conjunctiva Clear, EOM Intact HENT: Yes: WNL, Atraumatic, Normocephalic Neck: Yes: WNL, Supple, Trachea Midline Cardiovascular: Yes: WNL, Regular Rate and Rhythm Respiratory: Yes: WNL, Regular, CTA Bilaterally Gastrointestinal: Yes: WNL, Normal Bowel Sounds Genitourinary: Yes: WNL Musculoskeletal: Yes: WNL Extremities: Yes: WNL Edema: No Integumentary: Yes: WNL Neurological: Yes: WNL, Alert, Oriented ...Motor Strength: WNL Psychiatric: Yes: WNL Labs: CBC, BMP 07/13/17 06:30 07/13/17 06:30 Assessment/Plan Assessment/Plan ETOH abuse Atypical chest pain H/O HTN REC: Enzymes negative, ECG without acute changes. Platelets low, likely secondary to ETOH marrow suppression, hold ASA Plan for Echo and Persantine MIBI Thursday. Treatment of ETOH withdrawal sx; periods of sinus tach likely on that basis.
[2017-07-13] MEDS: levETIRAcetam 500 MG TABLET (FP) PO SCH ×2 (14:40→21:53)
[2017-07-13] MEDS: MAGNESIUM OXIDE 400 MG TABLET (FP) PO SCH ×2 (14:40→21:53)
[2017-07-13] MEDS: FOLIC ACID 1 MG TABLET (FP) PO SCH (14:40)
[2017-07-13] MEDS: POTASSIUM CHLORIDE ORAL LIQUID 20 MEQ/15 ML PO SCH ×2 (14:41→21:53)
[2017-07-13] MEDS: PRENATAL VITAMINS W/ FOLIC ACID TABLET (FP) PO SCH (14:41)
[2017-07-13] MEDS: amLODIPine BESYLATE 5 MG TABLET (FP) PO SCH (14:41)
[2017-07-13] MEDS: CYANOCOBALAMIN 1,000 MCG TABLET (FP) PO SCH (14:42)
[2017-07-13] MEDS: THIAMINE HCL 100 MG TABLET (FP) PO SCH (14:42)
--- NOTE | 2017-07-13 16:07 | PN ---
Teaching Attending Note Name of Resident: Alexandria Morejon ATTENDING PHYSICIAN STATEMENT I saw and evaluated the patient. I reviewed the resident's note and discussed the case with the resident. I agree with the resident's findings and plan as documented. SUBJECTIVE: no chest pain no signs of withdrawal o/night OBJECTIVE: Vital Signs Temperature 98.8 F 07/13/17 14:04 Pulse Rate 91 H 07/13/17 14:04 Respiratory Rate 20 07/13/17 14:04 Blood Pressure 104/75 07/13/17 14:04 O2 Sat by Pulse Oximetry (%) 98 07/13/17 09:00 Neck: Yes: WNL, Supple, Trachea Midline Cardiovascular: Yes: WNL, Regular Rate and Rhythm Respiratory: Yes: WNL, Regular, CTA Bilaterally Gastrointestinal: Yes: WNL, Normal Bowel Sounds Genitourinary: Yes: WNL CBC, BMP 07/13/17 06:30 07/13/17 06:30 ASSESSMENT AND PLAN: 1. CP - s/p MIBI - negative 2. Alcohol dependance - accepted to detox D/C when bed is available
--- NOTE | 2017-07-13 16:43 | DS ---
Physical Exam: SUBJECTIVE: Patient seen and examined OBJECTIVE: Vital Signs Period Temp Pulse Resp BP Sys/Jefferson Pulse Ox Last 24 Hr 97.4 F-98.8 F 74-91 18-20 90-122/55-80 98-100 PHYSICAL EXAM GENERAL: The patient is awake, alert, in no acute distress. EYES: PERRL, extraocular movements intact, sclera anicteric, conjunctiva clear. ENT: Oropharynx clear without exudates, moist mucous membranes. LUNGS: Breath sounds equal, clear to auscultation bilaterally, no wheezes, no crackles, no accessory muscle use. HEART: Regular rate and rhythm, S1, S2 without murmur, rub or gallop. ABDOMEN: Soft, nontender, nondistended, normoactive bowel sounds, no hepatosplenomegaly. EXTREMITIES: 2+ pulses, warm, well-perfused, no edema. Onychomychosis. NEUROLOGICAL: No tremors, Cranial nerves II through XII grossly intact. Normal speech, gait not observed. PSYCH: Normal mood, normal affect. LABS Laboratory Results - last 24 hr 07/13/17 07/13/17 07/13/17 06:30 06:30 06:30 WBC 3.7 L RBC 3.74 Hgb 12.0 Hct 37.0 MCV 99.0 H MCH 32.1 MCHC 32.4 RDW 15.2 Plt Count 80 L MPV 9.5 Neutrophils % 47.4 D Lymphocytes % 34.7 D Monocytes % 16.4 H Eosinophils % 0.8 Basophils % 0.7 Sodium 140 Cancelled Potassium 4.1 Cancelled Chloride 104 Cancelled Carbon Dioxide 29 Cancelled Anion Gap 7 L Cancelled BUN 19 H Cancelled Creatinine 0.6 Cancelled Random Glucose 80 D Cancelled Calcium 8.4 L Cancelled Phosphorus 3.0 D Cancelled Magnesium 1.6 L Cancelled Total Bilirubin 0.4 D Direct Bilirubin 0.1 AST 48 H D ALT 35 Alkaline Phosphatase 83 Total Protein 6.5 Albumin 3.1 L Vitamin B12 494 07/13/17 06:30 WBC RBC Hgb Hct MCV MCH MCHC RDW Plt Count MPV Neutrophils % Lymphocytes % Monocytes % Eosinophils % Basophils % Sodium Potassium Chloride Carbon Dioxide Anion Gap BUN Creatinine Random Glucose Calcium Phosphorus Magnesium Total Bilirubin Cancelled Direct Bilirubin Cancelled AST Cancelled ALT Cancelled Alkaline Phosphatase Cancelled Total Protein Cancelled Albumin Cancelled Vitamin B12 HOSPITAL COURSE: Date of Admission:07/10/17 Date of Discharge: 07/13/17 57 F with PMHx of HTN, Seizures, Chronic alcohol abuse on detox, and osteoarthritis, presenting with a 2 day history of retrosternal chest pain and admitted for atypical chest pain #Chest pain: - negative trops, patient not SOB -EKG - septal infact -No acute events noted on telemetry -S/p Persantine stress test-overall negative persantine test, approp BP response , pt remains asymptomatic, no significant EKG findings seen #alcohol withdrawal: No tremors or other withdrawal features seen Completed librium taper Seen by body specialist Follow up at [facility] Folic acid thiamine #Seizure disorder Continue Keppra 500 bid # HTN Norvasc 10mg Minutes to complete discharge: 41 Discharge Summary Reason For Visit: CHEST PAIN Current Active Problems Alcohol dependence with uncomplicated withdrawal (Acute) Alcohol withdrawal (Acute) Chest pain (Acute) Tingling (Acute) Essential (primary) hypertension (Chronic) Homeless single person (Chronic) Seizures (Chronic) Condition: Stable - Instructions Diet, Activity, Other Instructions: You were admitted and placed on alcohol detox. You complained about chest pain, but your heart enzymes were normal, your echo was normal and the stress test also came out normal. Please continue your home medications If you experience worsening chest pain, shortness of breath, or any other concerning symptoms, go to your [facility] or return to the ER immediately. Disposition: HOME - Home Medications Comprehensive Discharge Medication List: Ambulatory Orders Levetiracetam [Keppra -] 0 mg PO BID 07/09/17 Amlodipine Besylate [Norvasc -] 10 mg PO DAILY #60 tablet 07/13/17 Cyanocobalamin [Vitamin B12 -] 1,000 mcg PO DAILY #30 tablet 07/13/17 Folic Acid - 1 mg PO DAILY #30 tablet 07/13/17 Vitamins (Sjr) - 1 tab PO DAILY #30 tablet 07/13/17 Thiamine HCl [Vitamin B1 -] 100 mg PO DAILY #30 tablet 07/13/17 This patient is new to me today: No Emergency Visit: Yes ED Registration Date: 07/10/17 Care time: The patient presented to the Emergency Department on the above date and was hospitalized for further evaluation of their emergent condition. Critical Care patient: No - Discharge Referral Referred to [facility] Med P.C.: No
[2017-07-13] MEDS ORDERED: MELATONIN 1 MG TABLET PO ONE (23:04)
[2017-07-14] MEDS: THIAMINE HCL 100 MG TABLET (FP) PO SCH (09:21)
[2017-07-14] MEDS: MAGNESIUM OXIDE 400 MG TABLET (FP) PO SCH (09:21)
[2017-07-14] MEDS: levETIRAcetam 500 MG TABLET (FP) PO SCH (09:21)
[2017-07-14] MEDS: CYANOCOBALAMIN 1,000 MCG TABLET (FP) PO SCH (09:21)
[2017-07-14] MEDS: FOLIC ACID 1 MG TABLET (FP) PO SCH (09:21)
[2017-07-14] MEDS: PRENATAL VITAMINS W/ FOLIC ACID TABLET (FP) PO SCH ×2 (09:24→09:27)
[2017-07-14] MEDS: POTASSIUM CHLORIDE ORAL LIQUID 20 MEQ/15 ML PO SCH (09:24)
[2017-07-14] MEDS: amLODIPine BESYLATE 5 MG TABLET (FP) PO SCH (09:25)
[2017-07-14 10:14] VITALS: BP 102/52; PULSE 72; TEMP 98
[2017-07-14] MEDS: IBUPROFEN 600 MG TABLET (FP) PO PRN (13:08)
--- NOTE | 2017-07-14 13:44 | PN ---
Progress Note, Physician Chief Complaint: No chest pain, palpitations, or dyspnea. History of Present Illness: 57F with pmh og HTN and Chronic alcohol abuse treated at [facility] for detox was sent to the ED from there when she started shaking and showing signs of withdrawal. Pt has been daily drinker since October, drinking about 1 pint of vodka per day. Last drink was 2 days ago. Denies h/o withdrawal seizures. She initially went to [facility] today for detox after she began to have tremors but began to experience chest pain. [facility] staff then referred patient to the ED for evaluation. Patient denies SOB. States that she gets chest pain intermittently and has been seen by doctor in the past but does not recall being diagnosed with anything Complains of generalized muscle pain including chest and lower abdomen. - Current Medication List Current Medications: Active Medications Amlodipine Besylate (Norvasc -) 10 mg PO DAILY [facility] Last Admin: 07/14/17 09:25 Dose: Not Given Cyanocobalamin (Vitamin B12 -) 1,000 mcg PO DAILY [facility] Last Admin: 07/14/17 09:21 Dose: 1,000 mcg Folic Acid (Folic Acid -) 1 mg PO DAILY [facility] Last Admin: 07/14/17 09:21 Dose: 1 mg Ibuprofen (Motrin -) 600 mg PO Q6H PRN PRN Reason: FEVER Last Admin: 07/14/17 13:08 Dose: 600 mg Levetiracetam (Keppra -) 500 mg PO BID [facility] Last Admin: 07/14/17 09:21 Dose: 500 mg Lorazepam (Ativan Injection -) 1 mg IVPUSH Q6H PRN PRN Reason: WITHDRAWAL(CONT SUBST) Magnesium Oxide (Mag-Ox -) 400 mg PO BID [facility] Last Admin: 07/14/17 09:21 Dose: 400 mg Potassium Chloride (Potassium Chloride Oral Liquid) 20 meq PO BID [facility] Last Admin: 07/14/17 09:24 Dose: 20 meq Multivit/Folic Acid/Iron ( Vitamins (Sjr) -) 1 tab PO DAILY [facility] Last Admin: 07/14/17 09:27 Dose: 1 tab Thiamine HCl (Vitamin B1 -) 100 mg PO DAILY [facility] Last Admin: 07/14/17 09:21 Dose: 100 mg - Objective Vital Signs: Vital Signs Temperature 98 F 07/14/17 10:00 Pulse Rate 72 07/14/17 10:00 Respiratory Rate 20 07/14/17 10:00 Blood Pressure 102/52 07/14/17 10:00 O2 Sat by Pulse Oximetry (%) 100 07/14/17 09:00 Constitutional: Yes: No Distress Labs: CBC, BMP 07/13/17 06:30 07/13/17 06:30 Problem List - Problems (1) Alcohol dependence with uncomplicated withdrawal Code(s): F10.230 - ALCOHOL DEPENDENCE WITH WITHDRAWAL, UNCOMPLICATED (2) Chest pain Assessment/Plan: No myocardial ischemia on stress [place] MIBI; normal LVEF by gated studies. ECHO: normla LVEF Telelmetry: no arrhythmidas; sinus rhythm. F/u TSH and fasting lipids. Avoid NSAIDS. Code(s): R07.9 - CHEST PAIN, UNSPECIFIED (3) Essential (primary) hypertension Code(s): I10 - ESSENTIAL (PRIMARY) HYPERTENSION (4) Homeless single person Code(s): Z59.0 - HOMELESSNESS (5) Hypokalemia Assessment/Plan: repleted; normal K now; avoid excessive use of diuretics. Replete manesium. Code(s): E87.6 - HYPOKALEMIA
--- NOTE | 2017-07-14 18:23 | PN ---
Teaching Attending Note Name of Resident: Alexandria Morejon ATTENDING PHYSICIAN STATEMENT I saw and evaluated the patient. I reviewed the resident's note and discussed the case with the resident. I agree with the resident's findings and plan as documented. SUBJECTIVE: OBJECTIVE: Vital Signs Period Temp Pulse Resp BP Sys/Jefferson Pulse Ox Last 24 Hr 97.7 F-99 F 69-91 18-20 102-133/52-74 97-100 ASSESSMENT AND PLAN:
== END 2017-07-14 13:48 | disposition home or self-care (01) | DRG 198 ==
LOC: JER 16:46 → JERBED 07-10 01:10 → UNDOADMOB 07-10 01:10 → JERBED 07-10 01:22 → UNDOADMOB 07-10 01:22 → JERBED 07-10 14:23 → OBSVTOIN 07-10 15:05 → J4W 07-10 15:54 → JERBED 07-12 19:25 → J4W 07-12 19:27
PROVIDERS: ADMIT Internal Medicine; ATTEND Internal Medicine
PROC: HZ2ZZZZ Detoxification Services for Substance Abuse Treatment (ICD-10-PCS; principal; 2017-07-10)
DX: R07.89 Other chest pain (principal); I10 Essential (primary) hypertension; R25.1 Tremor, unspecified; F41.8 Other specified anxiety disorders; E87.6 Hypokalemia; F10.230 Alcohol dependence with withdrawal, uncomplicated; M19.90 Unspecified osteoarthritis, unspecified site; R00.0 Tachycardia, unspecified; G40.802 Other epilepsy, not intractable, without status epilepticus; D69.6 Thrombocytopenia, unspecified; I25.10 Atherosclerotic heart disease of native coronary artery without angina pectoris; Z59.0 Homelessness; R20.2 Paresthesia of skin; Z88.0 Allergy status to penicillin
CPT/HCPCS: 36415; 71010-TC; 78452-TC; 80048; 80053; 80076; 80307; 81003; 81015; 82550; 82553; 82607; 83735; 84100; 84132; 84443; 84484; 85025; 85027; 93005; 93010; 93017; 93306-TC; 99285-25; A9502; G0378